=== PATIENT | male | born 1980 | race Caucasian/White ===

== ENCOUNTER 2017-01-02 07:14 | Day surgery (SDC) | payer MEDICAID ==
[2017-01-02] MEDS ORDERED: Lidocaine 1% 50 ML MDV ONE (07:47)
[2017-01-02] MEDS ORDERED: Bupivacaine 0.5%/EPINEPHrine 1:200,000 50 ML MDV ONE (07:47)
[2017-01-02] MEDS ORDERED: Propofol 200 MG/20 ML SDV ONE ×2 (08:05→09:59)
[2017-01-02] MEDS ORDERED: fentaNYL 100 MCG/2 ML SDV ONE (08:05)
[2017-01-02] MEDS ORDERED: Midazolam 1 MG/ML 2 ML SDV ONE (08:05)
[2017-01-02] MEDS: ceFAZolin 2 GM in Sodium Chloride 0.9% 50 ML IV ONE ×2 (08:24→10:18)
[2017-01-02] MEDS ORDERED: Dextrose 5%-Lactated Ringers 1,000 ML IV SCH (08:30)
[2017-01-02] MEDS ORDERED: fentaNYL 250 MCG/5 ML SDV ONE (09:42)
[2017-01-02] MEDS ORDERED: Ketorolac 60 MG/2 ML SDV ONE (10:20)
[2017-01-02] MEDS ORDERED: hydrOXYzine HCl 100 MG/2 ML SDV IM ONE (11:05)
[2017-01-02 12:10] VITALS: BP 107/62
[2017-01-02] MEDS ORDERED: Acetaminophen/oxyCODONE 325-5 MG Tab PO PRN (12:30)
--- NOTE | 2017-01-07 12:44 | OR ---
DATE OF PROCEDURE: 01/02/2017 PREOPERATIVE DIAGNOSIS: Large left inguinal hernia. POSTOPERATIVE DIAGNOSES: 1. Combined direct and indirect incarcerated left inguinal hernia. 2. Left ilioinguinal and iliohypogastric nerves at risk for entrapment by scar and associated chronic neuropathic pain. OPERATIVE PROCEDURE: 1. Repair of combined direct and indirect incarcerated left inguinal hernia with mesh (89201). 2. Division of left ilioinguinal nerve (22197). 3. Division of left iliohypogastric nerve (73433). ANESTHESIA: Local plus IV sedation. PREPARATION PLANT REPAIRER: Shaniqua Merritt PA-C. INDICATIONS FOR PROCEDURE: This is a 36-year-old presently undergoing treatment at [facility] and he will be around for another month or so. He normally lives in [place]. He was noted by Dr. Junior to have an increasingly symptomatic left inguinal hernia and is to undergo repair of this today with mesh plug technique. The process was reviewed with the patient. Potential risks including bleeding, infection, injury to underlying viscera, problems with mesh becoming infected or the hernia recurring and as well as remote possibility of cardiopulmonary, septic, or hemorrhagic complications leading to were reviewed. Additionally with mesh plug technique, the flap portion of that system overlies often the ilioinguinal and/or iliohypogastric nerves and those would be divided if that appeared to be the case so as to avoid a chronic neuropathic pain associated with scarring around those nerves. He is aware that would result in some area of anesthesia in the inguinal region but as mentioned above with chronic pain. Given all this, the patient wishes to proceed. DETAILS OF PROCEDURE: The patient was taken to the operating room and placed in a supine position. IV sedation was administered, after which the abdomen and groin areas were prepped and draped. The left inguinal area was anesthetized with 1% lidocaine mixed with Marcaine and the standard left inguinal incision made and carried down through the skin and subcutaneous tissue and through the external oblique aponeurosis in line with the external ring. Subaponeurotic flaps were then raised superiorly and inferiorly. It appeared that both the ilioinguinal and iliohypogastric nerves would be covered by the flattened portion of the mesh system. At the conclusion of the procedure, these were both individually then divided and dissected out to the far lateral aspect of the incision where they were divided once again and sent as a surgical specimen. The cord structures were then mobilized upward, and eventually, it was noted the patient had a large incarcerated indirect hernia. This involved some adherent sigmoid colon within it. The indirect hernia sac was dissected away from the cord structures. The apex of this sac was opened and the sigmoid colon dissected free such that it would fall back into the peritoneal cavity. The apex of the sac was then sutured again with a 3-0 Vicryl stitch and dissected down to the level of the internal ring, where it could be turned inward. The patient was noted also to have an extremely broad direct hernia with essentially no inguinal floor through much of that area medial to the inferior epigastric artery. The transversalis fascia over this portion of the hernia was divided and dissection of the conjoint tendon accomplished medially, superiorly, and laterally as it was in the area of the indirect hernia site as well. Initially, an extra large mesh plug was placed into the direct portion of the hernia. This was affixed to the Ravindra's ligament with titanium tacking screws in the underside of the conjoint tendon superiorly. A 2nd extra large mesh plug was then placed into the indirect defect. The medial aspect of this was also affixed to the Ravindra's ligament with titanium tacking screws, and then laterally was tacked down to the shelving portion of the inguinal ligament on the inferior aspect of the incision with 0 Vicryl stitch and the remaining portions of both segments of mesh were then secured to the underside of the conjoint tendon laterally, superiorly, and medially with horizontal mattress sutures of 0 Vicryl stitch on the superior aspect where the 2 meshes came up against each other were sutured together with one of the horizontal mattress sutures. Some tacking screws were then placed fixing the 2 components of mesh in mid portion and the inferior aspect of the hernia at 2 segments of the mesh overlapping where a titanium screw was placed into Ravindra's ligament. This appeared to securely close off the hernia. The conjoint tendon was then approximated to the shelving portion of the inguinal ligament begining medially and extending laterally to the point where there was appropriately a snug closure over the cord structures. Over this flap portion, the mesh plug system was placed across the inguinal floor. Medially, it was affixed to the pubic tubercle with titanium tacking screw, and then sutured laterally with 3-0 Vicryl stitch. The cord structures were then placed over this and the external oblique aponeurosis was approximated with 4-0 Vicryl stitch as was the Iggy's fascia and the skin then closed with a 4-0 Vicryl subcuticular stitch. Steri-Strips were applied and the patient was taken to the recovery room in satisfactory condition. Physician therapist's assistant, Shaniqua Merritt, played an essential role in assisting in this case, helping to position the patient, retract structures as needed as well as suturing when indicated. Her presence improved the patient safety and decreased operative time. Gabriel Cobian MD /[id number]
== END 2017-01-02 12:45 | disposition home or self-care (01) ==
LOC: JP.SDS 07:14
PROVIDERS: ATTEND Surgery
DX: K40.30 Unilateral inguinal hernia, with obstruction, without gangrene, not specified as recurrent (principal); F17.210 Nicotine dependence, cigarettes, uncomplicated
CPT/HCPCS: 49507; 64772; A9270; C1781; J0690; J1885; J2250; J2704; J3010; J3410; J7042; J7050; 88302